=== PATIENT | female | born 1970 | race Caucasian/White ===

== ENCOUNTER 2016-08-21 17:03 | Emergency (ER) | payer OTHER, MEDICAID ==
--- NOTE | 2016-08-21 17:54 | EDPHY ---
H & P Time Seen by Provider: 08/21/16 17:17 HPI/ROS: CHIEF COMPLAINT: right arm swelling HISTORY OF PRESENT ILLNESS: Patient is a 46-year-old female with a history of lupus and back pain who presents to the emergency department with mild swelling at the base of her right brachium. Patient was admitted to the hospital and discharged on 08/11/2016 for lumbar strain. Patient does have a remote history of transverse myelitis but has had no repeat diagnoses. Patient's back is feeling better. She presents today because she had an IV placed in her right antecubital fossa. This was removed later the same day. She went home and gradually developed pain and swelling at the site of the IV. There is no redness. No warmth. No streaking up the arm. No fevers or chills. No numbness or tingling in her hand.Patient states she is on hormone replacement therapy. REVIEW OF SYSTEMS: My complete review of systems is negative except as mentioned in the HPI. Past Medical/Surgical History: Includes transverse myelitis, neurogenic bladder, lumbar strain, lupus, fibroids , pneumothorax, kidney stones, headaches Social history: The patient denies smoking. Smoking Status: Never smoked Physical Exam: General Appearance: Alert and no distress. Head: Pupils equal. Normal. Respiratory: No respiratory distress. Clear to auscultation bilaterally Cardiac: regular rate and rhythm. Extremities: patient has mild swelling the medial aspect of her antecubital fossa. There is no firm palpable mass but it is slightly larger than the left. There is no redness or warmth. No streaking up the arm. No lymphadenopathy. Neurovascularly intact distally.. Skin: No rashes or lesions. Neuro: Alert. Normal mood and affect. Constitutional: Initial Vital Signs Temperature (C) 36.8 C 08/21/16 17:07 Heart Rate 111 H 08/21/16 17:07 Respiratory Rate 16 08/21/16 17:07 Blood Pressure 155/96 H 08/21/16 17:07 O2 Sat (%) 98 08/21/16 17:07 O2 Delivery Mode Room Air Allergies/Adverse Reactions: naproxen [From Naprosyn] Allergy (Severe, Verified 09/10/15 23:43) Dyspnea phenazopyridine HCl [From Pyridium] Allergy (Severe, Verified 09/10/15 23:43) Sulfa (Sulfonamide Antibiotics) Allergy (Verified 09/10/15 23:43) Home Medications: Medication Instructions Recorded Bisacodyl [Dulcolax] 10 - 60 mg RC HS PRN 08/10/16 Cholecalciferol Vit D3 [Vitamin D3 1,000 units PO DAILY 08/10/16 (*)] Diazepam [Valium 10 MG (*)] 10 mg PO Q8H PRN 08/10/16 Diclofenac Sodium 25 - 50 mg PO Q8H PRN 08/10/16 Docusate Sodium [Colace 100 MG (*)] 100 mg PO BIDMEAL 08/10/16 Famciclovir [Famvir] 250 - 500 mg PO HS PRN 08/10/16 Famciclovir [Famvir] 500 mg PO DAILY 08/10/16 Gabapentin [Neurontin 300 MG (*)] 300 - 900 mg PO HS 08/10/16 Herbals/Supplements -Info Only 1 ea PO DAILY 08/10/16 Lactulose [Cephulac 20 gm/30 ml 20 gm PO DAILY 08/10/16 oral soln (*)] Multivitamins [Multivitamin (*)] 1 each PO DAILY 08/10/16 Norethindrone-E.estradiol-Iron 1 each PO HS 08/10/16 [Microgestin Fe 1-20 Tablet] Sennosides [Senokot] 8.6 mg PO DAILY PRN 08/10/16 Sennosides [Senokot] 25.8 mg PO DAILY 08/10/16 Tolterodine Tartrate [Detrol LA] 4 mg PO HS 08/10/16 azaTHIOprine [Imuran 50 mg (*)] 25 mg PO DAILY 08/10/16 Lidocaine 5% [Lidoderm 5% Patch 1 ea TD DAILY #15 patch 08/13/16 (*)] oxyCODONE IR [Oxycodone Ir (*)] 5 - 10 mg PO Q4 PRN #20 tab 08/13/16 Medical Decision Making ED Course/Re-evaluation: In the emergency department I discussed possible etiologies with the patient. I answered all her questions. An ultrasound of right upper extremity was ordered. 18 50: Please refer the dictated report by Dr. Sanchez. Patient has a basilic vein thrombosis. This is a superficial vein per Dr. Sanchez. Patient was given aspirin 324 mg. Hospital service was paged. I discussed the case with Dr. Gonzalez. He felt the patient was safe for discharge. He recommended close follow-up. Warm compresses. I discussed this with the patient. I answered all her questions. She is given warnings prior to leaving. Differential Diagnosis: My differential includes but is not limited to phlebitis, extravasation, DVT, arterial occlusion, contusion - Data Points Medications Given: Discontinued Medications Aspirin (Aspirin) 324 mg PO EDNOW ONE Stop: 08/21/16 18:56 Last Admin: 08/21/16 19:12 Dose: 324 mg Departure - Departure Disposition: Home, Routine, Self-Care Clinical Impression: Superficial venous thrombosis of upper extremity Qualifiers: Laterality: right Qualifier Code: (I82.611) Acute embolism and thrombosis of superficial veins of right upper extremity Condition: Good Instructions: Varicose Veins (ED) Additional Instructions: You need close recheck. You have a superficial venous thrombosis. (basilic vein ) he close follow-up with her doctor. Use warm compresses. Take an aspirin daily. Referrals: Isela Kelly ADMINISTRATIVE UNDERWRITER [Primary Care Provider] - 1-2 days without fail
[2016-08-21] MEDS ORDERED: ASPIRIN 81 MG CHEWABLE TAB PO ONE (18:55)
--- NOTE | 2016-08-21 19:00 | US ---
Ultrasound right upper extremity - August 21, 2016 at 1813 hours Clinical Indication: Right upper extremity pain and swelling. Recent IV start. Comparisons: None. Technique: Grayscale, color and Duplex imaging of the right upper extremity. Findings: The internal jugular vein, innominate vein, subclavian vein, axillary vein, brachial vein and cephalic veins are patent with normal waveforms. There is clot in the basilic vein from the mid t o distal humerus. It is patent above and below that. The left subclavian vein was evaluate for comparison and is normal. Impression: Right basilic clot from the mid to distal humerus. Results relayed by Dr. Dylan Sanchez to Dr. Mariam Garcia on August 21, 2016, at 1852 hours.
[2016-08-21] MEDS ORDERED: ASPIRIN 325 MG TAB ONE (19:37)
[2016-08-21 19:53] VITALS: BP 121/76; PULSE 94; RESP 15; TEMP 98.8; O2SAT 99
== END 2016-08-21 19:52 | disposition home or self-care (01) ==
DX: I82.611 Acute embolism and thrombosis of superficial veins of right upper extremity (principal)

== ENCOUNTER 2016-09-03 15:50 | Emergency (ER) | payer OTHER, MEDICAID ==
--- NOTE | 2016-09-03 15:46 | US ---
Ultrasound Venous Duplex/Doppler left Leg History: Pain and swelling. Findings: Ultrasound venous duplex and Doppler imaging of the common femoral vein, femoral vein, pop liteal vein, calf veins, greater saphenous vein origin, and contralateral common femoral vein demonst rates positive nonocclusive partial thrombus in the left popliteal vein. No extension to the left fem oral or common femoral vein. Impression: Positive deep venous thrombosis left leg. Findings and recommendations discussed with Dr. Witt at 1540 hour, today.
[2016-09-03 15:58] VITALS: O2SAT 95
--- NOTE | 2016-09-03 16:17 | EDPHY ---
H & P Stated Complaint: dvt on us l leg Time Seen by Provider: 09/03/16 16:12 HPI/ROS: CHIEF COMPLAINT: left popliteal vein DVT HISTORY OF PRESENT ILLNESS: 46-year-old female presents to the emergency department after being sent by her doctor for a positive DVT in her left lower extremity. Patient developed left calf pain 3 days ago that has progressed, ultrasound shows a DVT in her left popliteal vein nonocclusive. Patient 2 weeks ago was treated for a superficial thrombophlebitis from an IV start site over [place], she was taking 325 mg of aspirin twice a day until 4 days ago when she stopped this. Patient denies chest pain, no shortness of breath, no dizziness. Patient has a history of lupus, transverse myelitis, and she is on low dose control pills for fibroids causing vaginal bleeding. She does not smoke cigarettes. REVIEW OF SYSTEMS: A comprehensive 10 point review of systems is otherwise negative aside from elements mentioned in the history of present illness. Source: Patient Exam Limitations: No limitations - Personal History LMP (Females 10-55): Extended Cycle BCP/Inj Current Tetanus/Diphtheria Vaccine: No Tetanus Vaccine Date: pt refuses all vaccines - Medical/Surgical History Hx Asthma: No Hx Chronic Respiratory Disease: No Hx Diabetes: No Hx Cardiac Disease: No Hx Renal Disease: No Hx Cirrhosis: No Hx Alcoholism: No Hx HIV/AIDS: No Hx Splenectomy or Spleen Trauma: No Other PMH: Pmh: lupus, spinal cord injury, multiple fx in lower ext, fibroids, collapsed lung 2004, kidney stones, grinding of the teeth, colposcopy, whisdom teeth removal, neurogenic bladder, tension headaches - Social History Smoking Status: Never smoked Drug Use: Heroin - Physical Exam Exam: Physical Exam Gen: Alert and Oriented, NAD HEENT: PERRL, moist mucous membranes NECK: no meningismus CV: regular rate and regular rhythm PULM: CTAB, no wheezes ABDOMEN: soft, non tender to palpation, BS present BACK: No CVA tenderness NEURO: Neurologically grossly intact EXTREMITIES: normal appearing, left posterior calf with tenderness to palpation , no cords, no swelling, no erythema or warmth SKIN: no rash or break in skin on exposed skin PSYCH: answers questions appropriately. Constitutional: Initial Vital Signs Temperature (C) 36.7 C 09/03/16 15:55 Heart Rate 110 H 09/03/16 15:55 Respiratory Rate 20 09/03/16 15:55 Blood Pressure 149/93 H 09/03/16 15:55 O2 Sat (%) 95 09/03/16 15:55 O2 Delivery Mode Room Air Allergies/Adverse Reactions: naproxen [From Naprosyn] Allergy (Severe, Verified 09/03/16 15:53) Dyspnea phenazopyridine HCl [From Pyridium] Allergy (Severe, Verified 09/03/16 15:53) Sulfa (Sulfonamide Antibiotics) Allergy (Verified 09/03/16 15:53) Home Medications: Medication Instructions Recorded Bisacodyl [Dulcolax] 10 - 60 mg RC HS PRN 08/10/16 Cholecalciferol Vit D3 [Vitamin D3 1,000 units PO DAILY 08/10/16 (*)] Diazepam [Valium 10 MG (*)] 10 mg PO Q8H PRN 08/10/16 Diclofenac Sodium 25 - 50 mg PO Q8H PRN 08/10/16 Docusate Sodium [Colace 100 MG (*)] 100 mg PO BIDMEAL 08/10/16 Famciclovir [Famvir] 250 - 500 mg PO HS PRN 08/10/16 Famciclovir [Famvir] 500 mg PO DAILY 08/10/16 Gabapentin [Neurontin 300 MG (*)] 300 - 900 mg PO HS 08/10/16 Herbals/Supplements -Info Only 1 ea PO DAILY 08/10/16 Lactulose [Cephulac 20 gm/30 ml 20 gm PO DAILY 08/10/16 oral soln (*)] Multivitamins [Multivitamin (*)] 1 each PO DAILY 08/10/16 Norethindrone-E.estradiol-Iron 1 each PO HS 08/10/16 [Microgestin Fe 1-20 Tablet] Sennosides [Senokot] 8.6 mg PO DAILY PRN 08/10/16 Sennosides [Senokot] 25.8 mg PO DAILY 08/10/16 Tolterodine Tartrate [Detrol LA] 4 mg PO HS 08/10/16 azaTHIOprine [Imuran 50 mg (*)] 25 mg PO DAILY 08/10/16 Lidocaine 5% [Lidoderm 5% Patch 1 ea TD DAILY #15 patch 08/13/16 (*)] Rivaroxaban [Xarelto 15mg (*)] 15 mg PO BID 21 Days 09/03/16 Medical Decision Making - Diagnostics Imaging: Impression: Findings: Ultrasound venous duplex and Doppler imaging of the common femoral vein, femoral vein, popliteal vein, calf veins, greater saphenous vein origin, and contralateral common femoral vein demonstrates positive nonocclusive partial thrombus in the left popliteal vein. No extension to the left femoral or common femoral vein. Positive deep venous thrombosis left leg. Findings and recommendations discussed with Dr. Witt at 1540 hour, today. Dictated By: Tani Harrell ED Course/Re-evaluation: 46-year-old female presents from imaging with a positive left lower leg DVT in her popliteal vein. Patient has no chest pain or shortness of breath. Patient has a history of lupus, has had pain in this left lower leg increasing over the last 4 days. She was seen and treated for right upper extremity thrombophlebitis from an IV start. She was taking aspirin daily which she stopped 4 days ago. Patient denies chest pain, shortness of breath. I-STAT was drawn, she has normal renal functions. Patient was started on Xarelto. She was given a prescription for the 21 day course of 15 mg twice daily. She has an appointment with her primary care doctor in 2 days. I had a long discussion with the patient about the risks of being on an anticoagulant and the danger of a head strike. Patient is comfortable with this plan. She is given strict return precautions for any chest pain or shortness of breath. Differential Diagnosis: Diagnosis considered but not limited to DVT, muscle strain, septic joint, cellulitis - Data Points Laboratory Results: 09/03/16 17:02 POC Hgb 13.6 gm/dL (12.3-15.9) POC Hct 40 % (35.5-47.5) POC Sodium 142 mEq/L (134-144) POC Potassium 3.3 mEq/L (3.3-5.0) POC Chloride 108 mEq/L (96-108) POC BUN 9 mg/dL (7-23) POC Creatinine 0.7 mg/dL (0.6-1.2) POC Glucose 81 mg/dL (70-100) Medications Given: Discontinued Medications Rivaroxaban (Xarelto) 15 mg PO EDNOW ONE Stop: 09/03/16 17:37 Last Admin: 09/03/16 18:18 Dose: 15 mg Point of Care Test Results: 09/03/16 17:02 POC Sodium 142 POC Potassium 3.3 POC Chloride 108 POC BUN 9 POC Creatinine 0.7 POC Glucose 81 Departure - Departure Disposition: Home, Routine, Self-Care Clinical Impression: DVT (deep venous thrombosis) Condition: Good Instructions: Deep Venous Thrombosis (ED) Additional Instructions: Wear your compression socks 24 hours a day. Take your medication as prescribed , 15 mg of Xarelto twice daily for 21 days then you will need a prescription for 20 mg tablets. Return to the emergency department for any chest pain, shortness of breath, any other questions or concerns. Follow up with your primary care doctor as scheduled in 2 days. Referrals: Isela Kelly NEEDLE POLISHER [Primary Care Provider] - As per Instructions Prescriptions: Rivaroxaban [Xarelto 15mg (*)] 15 mg PO BID 21 Days
[2016-09-03] MEDS ORDERED: RIVAROXABAN 15 MG TAB PO ONE (17:36)
[2016-09-03 18:26] VITALS: BP 145/82; PULSE 69; RESP 16; TEMP 98.8
== END 2016-09-03 18:45 | disposition home or self-care (01) ==
LOC: EDSTATUS 15:50
DX: I82.432 Acute embolism and thrombosis of left popliteal vein (principal)
CPT/HCPCS: 82947-QW

== ENCOUNTER → 2016-09-06 | Outpatient (CLI) | payer OTHER, MEDICAID ==
--- NOTE | 2016-09-06 16:35 | US ---
Right Upper Extremity Venous Doppler INDICATION: Right upper extremity pain and swelling. Previously identified with superficial thrombop hlebitis, also DVT in the leg. On Xarelto for 3 days. Technique: Right upper extremity ultrasound is performed. COMPARISON: Sep 03, 2016, Aug 21, 2016. FINDINGS: The basilic vein is clotted from the elbow to the upper arm before it joins with the brachi al vein to form the axillary vein. The clot appears to be fresh. The vein is fully distended. The clot extends superiorly from the brachial vein-axillary vein junction, distally into the forearm. The distal portion in the forearm seems to be more compared to what was visualized before, however, I do not have a direct comparison between the two as far as the exact extent of where the clot goes. The rest of the veins in the right upper extremity are normal. Specifically, the innominate, subclavi an, jugular, axillary, and brachial veins are compressible and show normal color flow. No fluid colle ction. IMPRESSION: Superficial thrombophlebitis of the right basilic vein from forearm to upper humerus. If anything, the forearm portion of the clot may be extended. No DVT. Findings are discussed with Dr. Joseph Gupta.
== END ==
LOC: FIMAGING 14:59
PROVIDERS: ATTEND Internal Medicine Rheumatology
DX: I80.8 Phlebitis and thrombophlebitis of other sites (principal)

== ENCOUNTER 2016-09-09 05:48 | Inpatient (IN) | payer OTHER, MEDICAID ==
--- NOTE | 2016-09-09 06:08 | EDPHY ---
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 At that time she had no chest pain or shortness of breath. This patient presents to emergency room at 6 o'clock in the morning with left- sided inspiratory sharp pleuritic pain. Patient tells me that around 4 o'clock yesterday she developed this sudden onset sharp pain it is worse when she breathes in as when she breathes out. She tells me that she has not felt short of breath she has not had hemoptysis. She states she is concerned that possibly the clot went from her leg to her lung. She denies fever. Past Medical History: includes DVT recently diagnosed on September 03, lupus, neurogenic bladder, spinal cord injury, fibroids, kidney stones, on Xarelto, costochondritis, self caths Social History: denies any use of drugs alcohol tobacco products Family History: noncontributory ROS REVIEW OF SYSTEMS: A comprehensive 10 point review of systems is otherwise negative aside from elements mentioned in the history of present illness. Exam Constitutional triage nursing summary reviewed, vital signs reviewed, awake/ alert. Eyes normal conjunctivae and sclera, EOMI, PERRLA. HENT normal inspection, atraumatic, moist mucus membranes, no epistaxis, neck supple/ no meningismus, no raccoon eyes. Respiratory clear to auscultation bilaterally, normal breath sounds, no respiratory distress, no wheezing. Cardiovascular rate normal, regular rhythm, no murmur, no edema, distal pulses normal. Gastrointestinal soft, non-tender, no rebound, no guarding, normal bowel sounds, no distension, no pulsatile mass. Genitourinary no CVA tenderness. Musculoskeletal no midline vertebral tenderness, full range of motion, no calf swelling, no tenderness of extremities, no meningismus, good pulses, neurovascularly intact. Skin pink, warm, & dry, no rash, skin atraumatic. Neurologic awake, alert and oriented x 3, AAOx3, moves all 4 extremities equally, motor intact, sensory intact, CN II-XII intact, normal cerebellar, normal vision, normal speech. Psychiatric normal mood/affect. Heme/Lymph/Immune no lymphadenopathy. Differential diagnosis includes but is not limited to: Pulmonary embolism, pleurisy, lung infarct, ACS, atypical chest pain, pneumothorax, pneumonia, , aortic dissection, congestive heart failure, tumor, musculoskeletal pain, esophageal pain, GERD, peptic ulcer disease, pancreatitis Medical Decision Making: This patient will have an IV established, he will be hydrated with normal saline she will need a CT angiogram of her chest to rule pulmonary embolism. Patient had a EKG, blood work including abdominal labs given the left lateral lower chest wall pain pleurisy doubt colitis, doubt pancreatitis. Will check a BNP and troponin case PE is causing heart strain. Re-evaluation: 0717: Patient signed over to Dr. Andre for results of the CT angiogram to make sure she does not have a pulmonary embolism. EKG interpretation by me on record in [employer] system. Impression Time of EKG 6:30 a.m., this is sinus rhythm rate of 94, there is no acute ischemic changes specifically no ST elevation, ST depression, T-wave abnormality. Intervals are appropriate. CT scan of the Angiogram chest. The results of the study are positive for left lower lobe pulmonary embolism The study was read by Dr. Saldana. I viewed the images myself on the PACS system. 0728: Spoke with Dr. santo the hospital service he agrees to admit this patient for new left lower lobe pulmonary embolism in the setting of a left calf DVT that was diagnosed earlier in August. He feels that this patient may be failing Xarelto. Recommends Lovenox 1 milligram/kilogram. I have updated the patient she agrees for admission. Source: Patient - Personal History LMP (Females 10-55): Extended Cycle BCP/Inj Tetanus Vaccine Date: pt refuses all vaccines - Medical/Surgical History Hx Asthma: No Hx Chronic Respiratory Disease: No Hx Diabetes: No Hx Cardiac Disease: No Hx Renal Disease: No Hx Cirrhosis: No Hx Alcoholism: No Hx HIV/AIDS: No Hx Splenectomy or Spleen Trauma: No Other PMH: Pmh: lupus, spinal cord injury, multiple fx in lower ext, fibroids, collapsed lung 2004, kidney stones, grinding of the teeth, colposcopy, whisdom teeth removal, neurogenic bladder, tension headaches, DVT - Social History Smoking Status: Never smoked Constitutional: Initial Vital Signs Temperature (C) 37.3 C 09/09/16 05:54 Heart Rate 106 H 09/09/16 05:54 Respiratory Rate 20 09/09/16 05:54 Blood Pressure 164/105 H 09/09/16 05:54 O2 Sat (%) 100 09/09/16 05:54 O2 Delivery Mode Room Air Allergies/Adverse Reactions: naproxen [From Naprosyn] Allergy (Severe, Verified 09/09/16 05:52) Dyspnea phenazopyridine HCl [From Pyridium] Allergy (Severe, Verified 09/09/16 05:52) Sulfa (Sulfonamide Antibiotics) Allergy (Verified 09/09/16 05:52) Home Medications: Medication Instructions Recorded Bisacodyl [Dulcolax] 10 - 60 mg RC HS PRN 08/10/16 Cholecalciferol Vit D3 [Vitamin D3 1,000 units PO DAILY 08/10/16 (*)] Diazepam [Valium 10 MG (*)] 10 mg PO Q8H PRN 08/10/16 Diclofenac Sodium 25 - 50 mg PO Q8H PRN 08/10/16 Docusate Sodium [Colace 100 MG (*)] 100 mg PO BIDMEAL 08/10/16 Famciclovir [Famvir] 250 - 500 mg PO HS PRN 08/10/16 Famciclovir [Famvir] 500 mg PO DAILY 08/10/16 Gabapentin [Neurontin 300 MG (*)] 300 - 900 mg PO HS 08/10/16 Herbals/Supplements -Info Only 1 ea PO DAILY 08/10/16 Lactulose [Cephulac 20 gm/30 ml 20 gm PO DAILY 08/10/16 oral soln (*)] Multivitamins [Multivitamin (*)] 1 each PO DAILY 08/10/16 Norethindrone-E.estradiol-Iron 1 each PO HS 08/10/16 [Microgestin Fe 1-20 Tablet] Sennosides [Senokot] 8.6 mg PO DAILY PRN 08/10/16 Sennosides [Senokot] 25.8 mg PO DAILY 08/10/16 Tolterodine Tartrate [Detrol LA] 4 mg PO HS 08/10/16 azaTHIOprine [Imuran 50 mg (*)] 25 mg PO DAILY 08/10/16 Lidocaine 5% [Lidoderm 5% Patch 1 ea TD DAILY #15 patch 08/13/16 (*)] Rivaroxaban [Xarelto 15mg (*)] 15 mg PO BID 21 Days 09/03/16 Medical Decision Making - Data Points Laboratory Results: Laboratory Results 09/09/16 06:15 09/09/16 06:15 09/09/16 06:15 WBC 4.31 10^3/uL (3.80-9.50) RBC 4.54 10^6/uL (4.18-5.33) Hgb 14.2 g/dL (12.6-16.3) Hct 42.0 % (38.0-47.0) MCV 92.5 fL (81.5-99.8) MCH 31.3 pg (27.9-34.1) MCHC 33.8 g/dL (32.4-36.7) RDW 12.5 % (11.5-15.2) Plt Count 378 10^3/uL (150-400) MPV 8.2 L fL (8.7-11.7) Neut % (Auto) 77.4 H % (39.3-74.2) Lymph % (Auto) 11.4 L % (15.0-45.0) [place] % (Auto) 9.3 % (4.5-13.0) Eos % (Auto) 0.9 % (0.6-7.6) Baso % (Auto) 0.5 % (0.3-1.7) Nucleat RBC Rel Count 0.0 % (0.0-0.2) Absolute Neuts (auto) 3.34 10^3/uL (1.70-6.50) Absolute Lymphs (auto) 0.49 L 10^3/uL (1.00-3.00) Absolute Monos (auto) 0.40 10^3/uL (0.30-0.80) Absolute Eos (auto) 0.04 10^3/uL (0.03-0.40) Absolute Basos (auto) 0.02 10^3/uL (0.02-0.10) Absolute Nucleated RBC 0.00 10^3/uL (0-0.01) Immature Gran % 0.5 % (0.0-1.1) Immature Gran # 0.02 10^3/uL (0.00-0.10) PT 14.5 SEC (12.0-15.0) INR 1.14 (0.83-1.16) APTT 29.2 SEC (23.0-38.0) Sodium 143 mEq/L (134-144) Potassium 3.3 L mEq/L (3.5-5.2) Chloride 103 mEq/L (97-110) Carbon Dioxide 28 mEq/l (22-31) Anion Gap 12 mEq/L (8-16) BUN 8 mg/dL (7-23) Creatinine 0.7 mg/dL (0.6-1.0) Estimated GFR > 60 Glucose 85 mg/dL (70-100) Calcium 8.8 mg/dL (8.5-10.4) Magnesium 1.9 mg/dL (1.6-2.3) Total Bilirubin 0.8 mg/dL (0.1-1.4) Conjugated Bilirubin 0.7 H mg/dL (0.0-0.5) Unconjugated Bilirubin 0.1 mg/dL (0.0-1.1) AST 40 IU/L (14-46) ALT 46 IU/L (9-52) Alkaline Phosphatase 71 IU/L (38-126) Creatine Kinase 38 IU/L (0-156) CK-MB (CK-2) Fraction < 0.22 ng/mL (0-3.19) Troponin I < 0.012 ng/mL (0-0.034) NT-Pro-B Natriuret Pep 160 H pg/mL (0-125) Total Protein 7.9 g/dL (6.3-8.2) Albumin 3.9 g/dL (3.5-5.0) Lipase 114.0 IU/L (23-300) Medications Given: Discontinued Medications Sodium Chloride (Ns) 1,000 mls @ 0 mls/hr IV ONCE ONE PRN Reason: As Directed Stop: 09/09/16 06:20 Last Admin: 09/09/16 06:30 Dose: 1,000 mls Departure - Departure Disposition: [facility] Clinical Impression: Pleurisy Pulmonary embolus Qualifiers: Pulmonary embolism type: other Chronicity: acute Acute cor pulmonale presence: without acute cor pulmonale Qualifier Code: (I26.99) Other pulmonary embolism without acute cor pulmonale Condition: Good Referrals: Isela Kelly, ENROLLMENT PROCESSOR [Primary Care Provider] - As per Instructions
[2016-09-09] MEDS ORDERED: NS 1,000 ML IV ONE (06:19)
[2016-09-09 06:24] LABS: % IMMATURE GRANULYOCYTES 0.5 % (0.0-1.1); ABSOLUTE IMMATURE GRANULOCYTES 0.02 10^3/uL (0.00-0.10); ADD DIFF? NO; ADD MORPH? NO; ADD SCAN? NO; ATYPICAL LYMPHOCYTE FLAG 20 (0-99); FRAGMENT RBC FLAG 0 (0-99); HEMOGLOBIN 14.2 g/dL (12.6-16.3); LEFT SHIFT FLG 0 (0-99); LIPEMIA HEMOLYSIS FLAG 90 (0-99); MEAN CELL HEMOGLOBIN 31.3 pg (27.9-34.1); MEAN CELL HEMOGLOBIN CONCENTR. 33.8 g/dL (32.4-36.7); MEAN CELL VOLUME 92.5 fL (81.5-99.8); MEAN PLATELET VOLUME 8.2 fL (8.7-11.7); PLATELET CLUMPS FLAG 10 (0-99); PLATELET COUNT 378 10^3/uL (150-400); RED BLOOD CELL COUNT 4.54 10^6/uL (4.18-5.33); RED CELL DISTRIBUTION WIDTH 12.5 % (11.5-15.2)
[2016-09-09] MEDS ORDERED: IOPAMIDOL (ISOVUE 370) 100 ML BTL IV ONE (06:26)
[2016-09-09 06:33] LABS: APTT 29.2 SEC (23.0-38.0); INR 1.14 (0.83-1.16); PROTIME(PATIENT) 14.5 SEC (12.0-15.0)
--- NOTE | 2016-09-09 06:35 | CPEKG ---
Heart Rate: 94 RR Interval: 638 P-R Interval: 151 QRSD Interval: 76 QT Interval: 352 QTC Interval: 441 P [place]: 0 QRS [place]: 85 T Wave [place]: 38 EKG Severity - NORMAL ECG - EKG Impression: SINUS RHYTHM Electronically Signed By: Tasha Andre 09-Sep-2016 15:13:44
[2016-09-09 06:45] LABS: ALANINE AMINOTRANSFERASE 46 IU/L (9-52); ALBUMIN 3.9 g/dL (3.5-5.0); ALKALINE PHOSPHATASE 71 IU/L (38-126); ANION GAP 12 mEq/L (8-16); ASPARTATE AMINOTRANSFERASE 40 IU/L (14-46); BILIRUBIN,TOTAL 0.8 mg/dL (0.1-1.4); BILIRUBIN-CONJUGATED 0.7 mg/dL (0.0-0.5); BILIRUBIN-UNCONJUGATED 0.1 mg/dL (0.0-1.1); CALCIUM 8.8 mg/dL (8.5-10.4); CARBON DIOXIDE 28 mEq/l (22-31); CHLORIDE 103 mEq/L (97-110); CREATININE 0.7 mg/dL (0.6-1.0); GLOMERULAR FILTRATION RATE > 60; GLUCOSE 85 mg/dL (70-100); MAGNESIUM 1.9 mg/dL (1.6-2.3); POTASSIUM 3.3 mEq/L (3.5-5.2); SODIUM 143 mEq/L (134-144); TOTAL PROTEIN 7.9 g/dL (6.3-8.2)
[2016-09-09 06:56] LABS: TROPONIN I < 0.012 ng/mL (0-0.034)
[2016-09-09 07:10] LABS: CREATINE KINASE-MB FRACTION < 0.22 ng/mL (0-3.19)
[2016-09-09] MEDS ORDERED: ENOXAPARIN 60 MG/0.6 ML SYR SC ONE (07:28)
[2016-09-09] MEDS ORDERED: ONDANSETRON 4 MG/2 ML VIAL IVP PRN (07:59)
[2016-09-09] MEDS ORDERED: ONDANSETRON DISINTEGRATING 4 MG TAB PO PRN (07:59)
[2016-09-09] MEDS ORDERED: ENOXAPARIN 80 MG/0.8 ML SYR SC ONE (08:00)
[2016-09-09] MEDS ORDERED: POTASSIUM CL 20 MEQ TAB PO ONE (08:07)
[2016-09-09] MEDS ORDERED: WARFARIN SODIUM 5 MG TAB PO ONE (08:10)
--- NOTE | 2016-09-09 08:37 | CT ---
CT Pulmonary Angiogram Clinical Indications: Chest pain in a 46-year-old female with a history of lower extremity deep vein thrombosis; evaluate for pulmonary embolic disease. Technique: Thinly collimated multidetector helical CT imaging was performed through the chest while 75 mL of Isovue-370 were injected intravenously without complication. The images were obtained at 4 mm thickness and reconstructed at 1.5 mm thickness. Sagittal and coronal reconstructions were perform ed. The examination is reviewed on the workstation by the interpreting physician at multiple window/l evel settings. Dose reduction techniques were utilized. Findings: Chest: There is minimal patchy alveolar opacity involving the left lower lobe. Heart size is normal. No pericardial or pleural effusions are seen. Hilar and mediastinal contours are normal. There are no masses or noncalcified pulmonary nodules. The upper abdomen is negative for acute abnormality on this arterial phase study. CT Pulmonary Angiogram: The pulmonary arterial system is well opacified. Intraluminal filling defec t is seen involving the left pulmonary arterial system extending from the second order branches into more peripheral left lower lobe pulmonary arteries. No right-sided pulmonary emboli are seen. No vascular malformations are seen. The thoracic aorta has a normal contour without evidence of aneu rysm or dissection. Impression: 1. Left lower lobe pulmonary embolic disease. 2. Minimal left lower lung alveolar opacity probably secondary to the left lower lobe pulmonary embol i. The study was performed as an emergency on-call case and discussed by telephone with Dr. Blaine ramirez at 0 725 hours. The final interpretation is concordant with the original communication.
--- NOTE | 2016-09-09 08:43 | GHP ---
[f rep st] HISTORY AND PHYSICAL DATE OF ADMISSION: 09/09/2016 DATE OF EVALUATION: 09/09/2016 CHIEF COMPLAINT: Chest pain. HISTORY OF PRESENT ILLNESS: This is a 46-year-old female, who was started on Xarelto for a left popl iteal DVT on September 03. She had no symptoms of chest pain or shortness of breath at that time. She had about 2 days of what she initially described as costochondritis. Yesterday became pleuritic, th us she presented to the emergency department. She has no shortness of breath. She has had no syncop e. History is notable for lupus. She had an episode of transverse myelitis in the setting of lupus whic h left her initially paralyzed. She has an ongoing neurogenic bladder, needs significant bowel nickolas col. PAST MEDICAL/SURGICAL HISTORY: 1. Lupus transverse myelitis, as above. 2. Recent DVT. 3. Degenerative disk disease. 4. Ureteroscopy. 5. Colposcopy. 6. [facility] teeth removal. MEDICATIONS: Please see medication reconciliation. ALLERGIES: 1. Naproxen. 2. Phenazopyridine. 3. Sulfa. FAMILY HISTORY: Father of ALS. SOCIAL HISTORY: She never smoked. She does not drink. She does not use drugs. REVIEW OF SYSTEMS: 10-point review of systems was conducted and is negative except per HPI. PHYSICAL EXAM: VITAL SIGNS: Blood pressure is 164/105, heart rate is 106, respiration rate 20, satu rating 100% on room air. Temperature 37.3. GENERAL: The patient is a pleasant female, sitting comfo rtably, in no acute distress. HEENT: Shows her to be normocephalic, atraumatic. CARDIOVASCULAR: R egular rate and rhythm. No murmurs, rubs, or gallops. PULMONARY: Lungs clear to auscultation bilat erally. She is not in any respiratory distress. ABDOMEN: Soft, nontender, nondistended. SKIN: Sh ows no rash. : Exam shows her to have no Thorpe catheter in place. NEUROLOGIC: Shows her to be a lert and oriented x3. She is resting comfortably in her chair. PSYCHIATRIC: Exam shows a normal mo od and affect. LABS: CBC is unremarkable. INR is 1.1. Potassium is 3.3. DATA: 1. I discussed this with Dr. Herrera, will admit for pulmonary embolus. 2. I personally reviewed and interpreted her chest and thorax CT angiogram that did show a left lowe r lobe pulmonary embolus. 3. I personally reviewed and interpreted her EKG; this shows normal access, sinus rhythm, borderline tachycardic. There are no acute ischemic changes. IMPRESSION AND PLAN: This is a 46-year-old female with lupus who presents after failing Xarelto with a new pulmonary embolus. 1. Pulmonary embolus: Had been placed on Xarelto, is taking it appropriately. Initial DVT started post hospitalization, when she was more immobile. She has a history of a spinal cord injury. She gomez s lupus. I think immediate treatment should be Lovenox with transition to warfarin. I will check a hypercoagulable panel including anticardiolipin antibodies. We will also check a D-dimer. Will invo lve Hematology in her care. 2. Lupus: Appears that mostly this has been episode of transverse myelitis causing paralysis, for w hich she has mostly recovered. She has an ongoing neurogenic bladder and needs significant bowel pro tocol. 3. Mild hypokalemia. Will replete. /[id number]/MODL
[2016-09-09] MEDS ORDERED: ACETAMINOPHEN 325 MG TAB ONE (08:45)
[2016-09-09] MEDS ORDERED: ENOXAPARIN 80 MG/0.8 ML SYR SC SCH ×2 (09:00→21:00)
[2016-09-09] MEDS: ACETAMINOPHEN 325 MG TAB PO PRN (09:05)
[2016-09-09] MEDS: oxyCODONE IR 5 MG TAB PO PRN ×3 (09:58→20:22)
[2016-09-09] MEDS ORDERED: DIAZEPAM 10 MG TAB PO PRN (11:20)
[2016-09-09] MEDS ORDERED: FAMCICLOVIR 500 MG PO SCH ×2 (11:45→21:00)
[2016-09-09] MEDS ORDERED: KETOROLAC 30 MG/1 ML SDV IVP ONE (11:47)
[2016-09-09] MEDS ORDERED: azaTHIOprine 50 MG TAB PO SCH (12:00)
[2016-09-09] MEDS ORDERED: DIAZEPAM 5 MG TAB PO PRN (12:05)
[2016-09-09] MEDS ORDERED: FAMCICLOVIR 250 MG TAB PO SCH (12:30)
[2016-09-09] MEDS: LIDOCAINE 5% 1 EA PATCH TD SCH (12:50)
[2016-09-09] MEDS ORDERED: DIAZEPAM 10 MG PO PRN (13:29)
[2016-09-09] MEDS: DOCUSATE SODIUM 100 MG CAP PO SCH ×2 (13:37→14:45)
[2016-09-09] MEDS: FAMVIR 500 MG PO SCH ×2 (13:51→20:20)
[2016-09-09] MEDS: SENNOSIDES 1 TAB PO SCH ×2 (14:52→22:35)
--- NOTE | 2016-09-09 16:51 | HOSPPROG ---
Hospitalist Progress Note Assessment/Plan: Patient seen, plan of care discussed. Will await consultation from on Hematology Oncology Continue patient's home medications Reviewed concerns with patient's bowel therapy program Discussed with RN Subjective: Still having significant left-sided pain. Concerns about bowel therapy program. Objective: Vital Signs Temp Pulse Resp BP Pulse Ox 37.0 C 91 19 139/92 H 99 09/09/16 15:03 09/09/16 15:03 09/09/16 15:03 09/09/16 15:03 09/09/16 15:03 09/08/16 09/09/16 09/10/16 05:59 05:59 05:59 Intake Total 1000 Output Total 200 Balance 800 PT 14.5 SEC (12.0-15.0) 09/09/16 06:15 INR 1.14 (0.83-1.16) 09/09/16 06:15 - Physical Exam Constitutional: uncomfortable Eyes: PERRL, anicteric sclera Ears, Nose, Mouth, Throat: moist mucous membranes, hearing normal Cardiovascular: No JVD, No edema Gastrointestinal: No normoactive bowel sounds, No ascites Skin: warm, normal color Musculoskeletal: generalized weakness Neurologic: AAOx3 Psychiatric: thought process linear, anxious ICD10 Worksheet Patient Problems: Problems Problem Status Diagnosed Lumbar back pain with radiculopathy affecting left lower extremity Acute Pleurisy Acute Pulmonary embolus Acute
--- NOTE | 2016-09-09 17:26 | GCON ---
[f rep st] CONSULTATION HEMATOLOGY/ONCOLOGY CONSULTATION REASON FOR CONSULTATION: Pulmonary emboli with recent DVT on Xarelto. HISTORY OF PRESENT ILLNESS: The patient is a 46-year-old female admitted with PE diagnosed while on Xarelto. The patient reports that she was diagnosed with lupus approximately 25 years ago. At that time, her presenting symptoms were myalgias, arthralgias, fatigue and mouth sores. She was initially treated with Plaquenil. She was relatively stable until approximately 12 years ago, when she developed transverse myelitis that resulted in paraplegia. The patient has resumed function of her legs and is able to ambulate, but unfortunately continues to have neurogenic bladder and bowels. She has to self catheterize and has a very regular program that she does daily to move her bowels. She reports that she has just not been feeling well the last couple of months. She has had intermittent elevated blood pressure, which is somewhat unusual for her. She has been more fatigued and she just has a foreboding that something is not right. She presented to the ER on August 10 with acute low back and was felt to have muscle spasm. She was in the hospital for 3 days and when she was discharged, the back pain had resolved but she still was not feeling well from the standpoint of fatigue and a sense that something was not right. On August 21, she was diagnosed with a superficial phlebitis in her right arm at the site of an IV that she had during her July admission. She treated that with aspirin and warm compresses. She then presented to the emergency room on September 03 with a 4 day history of pain behind her left knee. She did not have any swelling. An ultrasound showed a nonocclusive partial thrombus in the left popliteal vein, but there was no extension to the left femoral or common femoral vein. She was on OCP's at the time and was switched to a progesterone only contraceptive She was started on Xarelto. She had another ultrasound on September 06 to evaluate the ongoing right arm pain with 2 new areas suggestive of superficial phlebitis. This showed superficial phlebitis of the right basilic vein from the forearm to the upper humerus. She had been on Xarelto for 3 days at that time. She reports that on September 05, she started having some mid chest pain that was pleuritic. She thought it was possibly costochondritis. The pain worsened to the point where this morning she presented to the emergency room where CT angiogram identified a pulmonary emboli in the left lower lobe. Despite the PE, the patient has not had any symptoms of dyspnea. She is admitted for further evaluation and treatment of the pulmonary embolus. The patient receives the bulk of her rheumatology care in [place] with a restorative art embalmer that has seen her for 12 years. He is treating her with Imuran. She is not certain whether or not she has ever been tested for lupus anticoagulants or any cardiolipin antibodies. She has never had low platelet counts. This is her 1st thromboembolic event. PAST MEDICAL HISTORY: Transverse myelitis, neurogenic bladder and bowel, DVT. PAST SURGICAL HISTORY: Colposcopy, wisdom teeth removal. FAMILY HISTORY: Her father of ALS. A maternal grandmother had a pulmonary emboli. There is no family history of any colon or breast cancer. SOCIAL HISTORY: She does not smoke. She does not drink alcohol. She lives alone and is currently not working. REVIEW OF SYSTEMS: Ten point review of systems is negative, other than stated in HPI. PHYSICAL EXAMINATION: GENERAL: She is sitting in bed, appearing relatively comfortable. VITAL SIGNS: Blood pressure 139/92, heart rate 91, O2 sat 99% on room air. She is afebrile. HEENT: Pupils are equal. Sclerae anicteric. Oropharynx clear. LUNGS: Clear to auscultation. HEART: Regular rate. ABDOMEN: Soft, nontender. EXTREMITIES: No edema. No pain behind the left knee. LABORATORY DATA: White blood cell count 4.3, hematocrit 42, platelets 378. PTT 29.2, INR 1.1. Fibrinogen 546. Comprehensive metabolic panel is unremarkable. IMPRESSION: This is a 46-year-old female with a past history of lupus complicated by transverse myelitis with a recent diagnosis of superficial phlebitis diagnosed in early August and then nonocclusive deep venous thrombosis of the left leg on September 03. Three days after starting xaralto for the DVT, she developed pleuritic mid sternal chest pain and was subsuquently diagnosed with pulmonary emboli to the left lower lobe. It is unclear to me whether or not this represents true Xarelto failure. I think it is possible that the patient may have had a pulmonary embolus at the time of the initial deep venous thrombosis diagnosis, but was not yet symptomatic from it. Nonetheless, I agree with treating with Lovenox transitioning to Coumadin. A hypercoagulable workup with anticardiolipin antibodies, lupus anticoagulant, beta-2 glycoprotein antibodies is pending. Of note, the patient has normal platelets and a normal PTT, both of which are often abnormal in the setting of lupus anticoagulant. There is a remote family history of thromboembolic disease with her grandmother, and I think it would be reasonable to do an additional hypercoagulable evaluation. The patient was on estrogen containing control pill at the time of the deep venous thrombosis and is now on a progesterone only agent. No other obvious provoking event is identified. The patient is concerned that she may be having a lupus flare and, evaluation for that is under way. PLAN: 1. Agree with Lovenox with transitioning to Coumadin for now. 2. We will do additional labs to complete a hereditary thrombophilic workup. 3. We will try to get records from her restorative art embalmer in terms of whether or not she has previously been identified to have a lupus anticoagulant. . 4. I think it would be reasonable to check an ultrasound of the left leg to see if there has been any obvious propagation of clot in her leg. I think this is unlikely, but would be helpful from a new baseline standpoint. 5. We will continue to follow along with you. /[id number]/MODL MTDD
[2016-09-09] MEDS ORDERED: GABAPENTIN 300 MG CAP PO ONE (17:30)
[2016-09-09] MEDS ORDERED: SENNOSIDES 1 TAB PO SCH (18:00)
[2016-09-09] MEDS: GABAPENTIN 300 MG CAP PO SCH (20:21)
[2016-09-09] MEDS: ENOXAPARIN 80 MG/0.8 ML SYR SC SCH (20:33)
[2016-09-09] MEDS ORDERED: TOLTERODINE TARTRATE 4 MG PO SCH (21:00)
[2016-09-09] MEDS ORDERED: TOLTERODINE TARTRATE 2 MG EXT REL CAP PO SCH (21:00)
[2016-09-09] MEDS: TOLTERODINE TARTRATE 4 MG PO SCH (22:35)
[2016-09-09] MEDS: PATCH REMOVAL 1 EA PATCH TD SCH (22:36)
[2016-09-10] MEDS: ACETAMINOPHEN 325 MG TAB PO PRN ×3 (03:10→22:26)
[2016-09-10] MEDS: DIAZEPAM 10 MG PO PRN ×3 (03:39→22:33)
[2016-09-10] MEDS ORDERED: CHLORHEXIDINE GLUCONATE 15 ML UDL ONE (05:25)
[2016-09-10 05:47] LABS: % IMMATURE GRANULYOCYTES 0.5 % (0.0-1.1); ABSOLUTE IMMATURE GRANULOCYTES 0.02 10^3/uL (0.00-0.10); ADD DIFF? NO; ADD MORPH? NO; ADD SCAN? NO; ATYPICAL LYMPHOCYTE FLAG 40 (0-99); FRAGMENT RBC FLAG 0 (0-99); HEMATOCRIT 37.2 % (38.0-47.0); HEMOGLOBIN 12.7 g/dL (12.6-16.3); LEFT SHIFT FLG 0 (0-99); LIPEMIA HEMOLYSIS FLAG 90 (0-99); MEAN CELL HEMOGLOBIN 31.8 pg (27.9-34.1); MEAN CELL HEMOGLOBIN CONCENTR. 34.1 g/dL (32.4-36.7); MEAN CELL VOLUME 93.2 fL (81.5-99.8); MEAN PLATELET VOLUME 8.2 fL (8.7-11.7); PLATELET CLUMPS FLAG 0 (0-99); PLATELET COUNT 328 10^3/uL (150-400); RED BLOOD CELL COUNT 3.99 10^6/uL (4.18-5.33); RED CELL DISTRIBUTION WIDTH 12.3 % (11.5-15.2)
[2016-09-10 06:07] LABS: INR 1.25 (0.83-1.16); PROTIME(PATIENT) 15.7 SEC (12.0-15.0)
[2016-09-10 06:17] LABS: ANION GAP 10 mEq/L (8-16); CALCIUM 8.5 mg/dL (8.5-10.4); CARBON DIOXIDE 23 mEq/l (22-31); CHLORIDE 106 mEq/L (97-110); CREATININE 0.6 mg/dL (0.6-1.0); GLOMERULAR FILTRATION RATE > 60; GLUCOSE 81 mg/dL (70-100); POTASSIUM 3.9 mEq/L (3.5-5.2); SODIUM 139 mEq/L (134-144)
[2016-09-10] MEDS ORDERED: NORETHINDRONE PO SCH (09:00)
[2016-09-10] MEDS ORDERED: SENNOSIDES 1 TAB PO SCH (09:00)
[2016-09-10] MEDS ORDERED: Herbals/Supplements -Info Only PO SCH (09:00)
[2016-09-10] MEDS ORDERED: azaTHIOprine 50 MG TAB PO SCH (09:00)
[2016-09-10] MEDS ORDERED: IMURAN PO SCH (09:00)
[2016-09-10] MEDS: ENOXAPARIN 80 MG/0.8 ML SYR SC SCH ×2 (09:49→22:26)
[2016-09-10] MEDS: DOCUSATE SODIUM 100 MG CAP PO SCH ×4 (09:49→20:44)
[2016-09-10] MEDS: CHOLECALCIFEROL VIT D3 1,000 UNITS TAB PO SCH (09:50)
[2016-09-10] MEDS: MULTIVITAMINS 1 EACH TAB PO SCH (09:51)
[2016-09-10] MEDS: IMURAN PO SCH (09:53)
[2016-09-10] MEDS: FAMVIR 500 MG PO SCH ×2 (09:55→22:27)
[2016-09-10] MEDS: LACTULOSE 20 GM/30 ML UDCUP PO SCH (11:12)
[2016-09-10] MEDS: LIDOCAINE 5% 1 EA PATCH TD SCH ×2 (11:12→12:01)
[2016-09-10] MEDS: SENNOSIDES 1 TAB PO SCH ×2 (11:13→20:43)
[2016-09-10] MEDS ORDERED: WARFARIN SODIUM 5 MG TAB PO ONE ×2 (11:24→12:00)
[2016-09-10] MEDS ORDERED: KETOROLAC 30 MG/1 ML SDV IVP ONE (11:24)
--- NOTE | 2016-09-10 11:51 | SOAPPROG ---
SOAP Progress Note Assessment/Plan: Assessment: 1) Pulmonary emboli diagnosed 3 days after starting xaralto-on therapeutic lovenox with coumadin 2) SLE with history of tranverse myelitis 3) Neurogenic bowel and bladder 4) Pleuritic pain-left shoulder/chest 5) Anxiety 6) HTN-?acute versus chronic Plan: Continue lovenox until INR therapeutic Follow up on hypercoag labs, especially ACL, LA and beta 2 glycoprotein antibodies Follow up ultrasound on left leg to rule out clot propagation while on xaralto. This is unlikely and not urgent. Will serve as new baseline. Her PCP (Nilam Barrera) office is about 20 miles from where she lives, will likely be more convenient for her to be followed in the anticoag clinic here. NSAID's ok in the short term with the coumadin. Narcotics problematic with her bowel issues. 09/10/16 11:55 Subjective: feeling overwhelmed with her bowel concerns, pleuritic chest pain Objective: Vital Signs Temp Pulse Resp BP Pulse Ox 36.7 C 83 16 133/91 H 97 09/10/16 08:00 09/10/16 09:20 09/10/16 08:00 09/10/16 08:00 09/10/16 09:20 Laboratory Results 09/10/16 05:17 09/10/16 05:17 09/09/16 09/10/16 09/11/16 05:59 05:59 05:59 Intake Total 1525 Output Total 900 Balance 625 PT 15.7 SEC (12.0-15.0) H 09/10/16 05:17 INR 1.25 (0.83-1.16) H 09/10/16 05:17 Physical Exam - Physical Exam General Appearance: anxiety Neck: supple Respiratory: lungs clear Abdomen: non-tender, soft Extremities: No pedal edema ICD10 Worksheet Patient Problems: Problems Problem Status Diagnosed Lumbar back pain with radiculopathy affecting left lower extremity Acute Pleurisy Acute Pulmonary embolus Acute
[2016-09-10] MEDS ORDERED: CHLORHEXIDINE GLUCONATE 15 ML UDL PO ONE (12:00)
[2016-09-10 13:10] LABS: PROTEIN S ACTIVITY 87 % (50 - 160)
[2016-09-10 14:46] LABS: PROTEIN C ACTIVITY 113 % (70 - 150)
--- NOTE | 2016-09-10 15:47 | HOSPPROG ---
Hospitalist Progress Note Assessment/Plan: 46-year-old female presents emergency room complaints of left-sided chest pain. Chart reviewed extensively. Discussed with the correctional case records supervisor. Reviewed patient' s care with the nursing staff. #Pulmonary emboli diagnosed 3 days after starting xaralto-on therapeutic lovenox with coumadin Appreciate Hematology consult Continue Lovenox and Coumadin Continue to follow pending laboratory evaluations Patient will attend the Coumadin Clinic is it is closer to her home # history of SLE with history of tranverse myelitis Stable at this time # Neurogenic bowel and bladder Continue aggressive bowel protocol Patient may require rehabilitation secondary to acute process # Pleuritic pain-left shoulder/chest Toradol today NSAIDs per Hematology # Anxiety Patient has contracted for safety with me however with staff has been presenting suicidal ideation Reviewed with the hospital social worker TLC evaluation ordered # HTN- Likely acute in the setting of severe anxiety Will continue to monitor # disposition Reviewed plan of care at length with patient Anxious about going home Recommended rehabilitation in the outpatient setting Consider PowerBack Bowel regimen today Case management to arrange disposition plan Will likely discharge 09/12/2016 Subjective: Up out of bed. Complains of neck and left shoulder pain. Tearful and anxious during my evaluation. Concerns regarding plan of care and outpatient follow-up. Concerns regarding bowel regimen. Objective: Vital Signs Temp Pulse Resp BP Pulse Ox 36.6 C 95 16 139/94 H 97 09/10/16 11:48 09/10/16 11:48 09/10/16 11:48 09/10/16 11:48 09/10/16 11:48 Laboratory Results 09/10/16 05:17 09/10/16 05:17 09/09/16 09/10/16 09/11/16 05:59 05:59 05:59 Intake Total 1525 Output Total 900 Balance 625 PT 15.7 SEC (12.0-15.0) H 09/10/16 05:17 INR 1.25 (0.83-1.16) H 09/10/16 05:17 - Physical Exam Constitutional: appears nourished, chronically ill appearing, uncomfortable Eyes: PERRL, anicteric sclera, EOMI Ears, Nose, Mouth, Throat: moist mucous membranes, hearing normal, ears appear normal Cardiovascular: tachycardia, No JVD, No edema Respiratory: no respiratory distress, no rales or rhonchi, reduced air movement Gastrointestinal: No tenderness, No ascites, No guarding Skin: warm, normal color, No induration Musculoskeletal: no joint effusions, muscular tenderness, generalized weakness Neurologic: AAOx3 Psychiatric: not encephalopathic, anxious, depressed, poor judgement, No suicidal ideation ICD10 Worksheet Patient Problems: Problems Problem Status Diagnosed Lumbar back pain with radiculopathy affecting left lower extremity Acute Pleurisy Acute Pulmonary embolus Acute
[2016-09-10] MEDS ORDERED: CHLORHEXIDINE GLUCONATE 15 ML UDL PO PRN (16:23)
[2016-09-10] MEDS: LACTULOSE 20 GM/30 ML UDCUP PO PRN (16:24)
[2016-09-10] MEDS: SENNOSIDES 1 TAB PO PRN (16:25)
[2016-09-10] MEDS ORDERED: LIDOCAINE 5% 1 EA PATCH TD ONE (16:30)
[2016-09-10 17:19] LABS: BETA 2 GLYCOPROTEIN IGA 11.5 U/mL (())
[2016-09-10 18:31] LABS: C3 COMPLEMENT COMPONENT 101 mg/dL (75 - 175); C4 COMPLEMENT COMPONENT 19 mg/dL (14 - 40)
[2016-09-10] MEDS: BISACODYL 10 MG SUPP PR PRN (19:49)
[2016-09-10] MEDS: GABAPENTIN 300 MG CAP PO SCH (22:26)
[2016-09-10] MEDS: TOLTERODINE TARTRATE 4 MG PO SCH (22:27)
[2016-09-10] MEDS: PATCH REMOVAL 1 EA PATCH TD SCH (22:57)
[2016-09-11] MEDS: ACETAMINOPHEN 325 MG TAB PO PRN ×2 (04:47→22:23)
[2016-09-11] MEDS ORDERED: KETOROLAC 30 MG/1 ML SDV IVP ONE (05:00)
[2016-09-11 07:56] LABS: DRVVT CONFIRM RATIO 1.1 ratio (0.0 - 1.1); THROMBIN TIME 24 sec (15 - 23)
[2016-09-11 08:16] LABS: REPTILASE TIME 19 sec (14 - 23)
[2016-09-11] MEDS: ENOXAPARIN 80 MG/0.8 ML SYR SC SCH ×2 (08:52→22:10)
[2016-09-11] MEDS: IMURAN PO SCH (10:17)
[2016-09-11] MEDS: FAMVIR 500 MG PO SCH ×2 (10:19→22:12)
[2016-09-11] MEDS: MULTIVITAMINS 1 EACH TAB PO SCH (10:20)
[2016-09-11] MEDS: DOCUSATE SODIUM 100 MG CAP PO SCH ×3 (10:21→22:11)
[2016-09-11] MEDS: CHOLECALCIFEROL VIT D3 1,000 UNITS TAB PO SCH (10:21)
[2016-09-11] MEDS ORDERED: WARFARIN SODIUM 5 MG TAB PO ONE ×2 (10:43→12:00)
[2016-09-11] MEDS: IBUPROFEN 600 MG TAB PO SCH ×2 (11:12→22:10)
[2016-09-11] MEDS: SENNOSIDES 1 TAB PO SCH ×2 (11:38→22:10)
[2016-09-11] MEDS: LACTULOSE 20 GM/30 ML UDCUP PO SCH (11:38)
[2016-09-11] MEDS: LIDOCAINE 5% 1 EA PATCH TD SCH (11:38)
[2016-09-11] MEDS: DIAZEPAM 10 MG PO PRN (12:29)
--- NOTE | 2016-09-11 12:33 | SOAPPROG ---
SOAP Progress Note Assessment/Plan: Assessment: Psych eval-full note to follow. Pt is a 46 y/o S C female who has been on antidepressants in the past but who has no hx of psych hosp or suicide attempts who has been making vague suicidal statements during her recent medical stay. She has a long hx of Lupus and was dx with PE 3 days ago; she also has neurogenic bowel and bladder, plueuritic pain and pain in L shoulder and chest, transverse myelitis, and HTN. Pt states she has been through a lot and currently has no quality of life and has few supports in the community. Pt is from the [place] and moved here 18 years ago. She admits to not wanting to live with pain and not having quality of life, but does want to go to rehab and get better. Denies current SI or plan/intent. Plan:Pt is psych stable for D/C-not acutely suicidal-she has been accepted to rehab does not want or need antidepressants con't Valium prn for anxiety related to pain and other medical problems 09/12/16 11:59 Subjective: "I'm just frustrated." Objective: Vital Signs Temp Pulse Resp BP Pulse Ox 36.6 C 91 18 141/88 H 96 09/11/16 08:00 09/11/16 08:00 09/11/16 08:00 09/11/16 08:00 09/11/16 08:00 Laboratory Results 09/10/16 05:17 09/10/16 05:17 09/10/16 09/11/16 09/12/16 05:59 05:59 05:59 Intake Total 1525 Output Total 900 Balance 625 PT 15.7 SEC (12.0-15.0) H 09/10/16 05:17 INR 1.25 (0.83-1.16) H 09/10/16 05:17 Pt is A+O x4 mood-anxious affect-appr no veg sx depression thoughts-logical speech-wnl no S/H i no A/V H no sx psychosis/jaleesa conc/memory-intact I/J-good - Time Spent With Patient Time Spent With Patient: 45' - Pending Discharge Pending Discharge Within 24 Hours: Yes Pending Discharge Within 48 Hours: Yes Pending Discharge Date: 09/13/16 Pending Discharge Time: 11:00 ICD10 Worksheet Patient Problems: Problems Problem Status Diagnosed Lumbar back pain with radiculopathy affecting left lower extremity Acute Pleurisy Acute Pulmonary embolus Acute
[2016-09-11 14:05] LABS: BETA 2 GLYCOPROTEIN IGM <4.0 U/mL (())
[2016-09-11 14:12] LABS: BETA 2 GLYCOPROTEIN I IGG <4.0 U/mL (())
[2016-09-11] MEDS ORDERED: traMADol 50 MG TAB PO ONE (15:49)
--- NOTE | 2016-09-11 15:56 | HOSPPROG ---
Hospitalist Progress Note Assessment/Plan: 46-year-old female presents emergency room complaints of left-sided chest pain. Chart reviewed extensively. Discussed with the correctional case records supervisor. Reviewed patient' s care with the nursing staff. Discussed with palliative care. #Pulmonary emboli diagnosed 3 days after starting xaralto-on therapeutic lovenox with coumadin Continue to bridge with Lovenox until Coumadin therapeutic Check INR in the a.m. Follow up with Hematology in the outpatient setting Appreciate Hematology consult Patient will attend the Coumadin Clinic is it is closer to her home # history of SLE with history of transverse myelitis Stable at this time No signs of lupus flare-up at this time # Neurogenic bowel and bladder Continue aggressive bowel protocol Patient may require rehabilitation secondary to acute process Continue self cathing # Pleuritic pain-left shoulder/chest Toradol today NSAIDs per Hematology Avoid narcotics secondary to neurogenic bowel Limit NSAIDs secondary to increased risk for bleeding Patient educated and aware of complications # Anxiety Patient has contracted for safety with me however with staff has been presenting suicidal ideation Reviewed with the rn social work Appreciate psychiatry evaluation Please see note No further intervention warranted at this time # HTN- Likely acute in the setting of severe anxiety Will continue to monitor # palliative care consult Appreciate palliative care meeting with the patient support provided # disposition Reviewed plan of care at length with patient Anxious about going home Recommended rehabilitation in the outpatient setting Consider PowerBack Bowel regimen today Case management to arrange disposition plan Will likely discharge 09/12/2016 Subjective: Tearful today. Does not want to continue living in this current condition. Complains of left-sided pain. Objective: Vital Signs Temp Pulse Resp BP Pulse Ox 36.6 C 91 18 141/88 H 96 09/11/16 08:00 09/11/16 08:00 09/11/16 08:00 09/11/16 08:00 09/11/16 08:00 Laboratory Results 09/10/16 05:17 09/10/16 05:17 09/10/16 09/11/16 09/12/16 05:59 05:59 05:59 Intake Total 1525 Output Total 900 Balance 625 PT 15.7 SEC (12.0-15.0) H 09/10/16 05:17 INR 1.25 (0.83-1.16) H 09/10/16 05:17 - Physical Exam Constitutional: appears nourished, uncomfortable, No no apparent distress Eyes: PERRL, anicteric sclera, EOMI Ears, Nose, Mouth, Throat: moist mucous membranes, hearing normal, ears appear normal Cardiovascular: regular rate and rhythym, No JVD, No edema Respiratory: no respiratory distress, no rales or rhonchi, reduced air movement Gastrointestinal: normoactive bowel sounds, No tenderness, No ascites Skin: warm, normal color, No erythema Musculoskeletal: normal joint ROM, no joint effusions, generalized weakness Neurologic: AAOx3 Psychiatric: anxious, depressed, poor insight, poor judgement, No suicidal ideation ICD10 Worksheet Patient Problems: Problems Problem Status Diagnosed Lumbar back pain with radiculopathy affecting left lower extremity Acute Pleurisy Acute Pulmonary embolus Acute
[2016-09-11] MEDS: LACTULOSE 20 GM/30 ML UDCUP PO PRN (16:10)
[2016-09-11] MEDS: SENNOSIDES 1 TAB PO PRN (16:10)
[2016-09-11] MEDS: BISACODYL 10 MG SUPP PR PRN (19:23)
--- NOTE | 2016-09-11 20:22 | PDPCPN ---
Palliative Care Progress Note Assessment/Plan: Referring provider: Mer Hyatt Reason for consult: Complex medical decision making Symptom control HPI: Wilma Varghese is a 46 yo female with PMH SLE, neurogenic bladder and bowels, transverse myelitis, admitted to the hospital SOB. Found to have PE. Started on anticoagulation as outpt for LE DVT. Hematology consulted. Started on coumadin on room air, having pain on the side of PE. Palliative care consulted for complex medical medical management. Wilma states she feels her pain is worse today, left side sharp and stabbing. Toradol helped the most for her pain but unable to continue to take this. On scheduled ibuprofen now with not as much relief. She is worried about her pain and doing her bowel regimen tonight. Discussed trying tramadol. Morphine did not help oxy helps a little but makes her very dizzy. She is hoping to get increased support at home as it is very difficult for her to manage her medical problems. She is frustrated with medical complications and often feels her quality of life is not very good due to these medical problems. We discussed she does not currently qualify for hospice care with no terminal diagnoses. Palliative care can help with symptom management but she feels she needs more support and not just medical management then palliative care can offer. She has a MDPOA who she feels knows her wishes well and is a great support to her. Assessment: Physical: - Pain: from PE on side - on scheduled NSAIDs - lidocaine patch - tramadol x1 tonight - deep breathing, distraction techniques - constipation; due to neurogenic bladder - continue bowel regimen Emotional/psychological: anxiety: - at home on xanax - valium PRN - psych involved Advanced Care Planning: Is patient decisional?: yes Code Status: DNR POA: Aliyah bashir is MDPOA. Plan: Discharge home tomorrow with [facility]. Subjective: the pain is worse and feels like i'm being stabbed in the side Objective: Social History: Estranged from family. lives alone. Medication list reviewed ROS: General: fatigue, weakness ENT: negative Resp: negative GI: constipation : neurogenic bladder MS: side pain Skin: negative Neuro: negative Psych: negative Functional assessment: PPS: 80% Functional status: independent ADLs, IADLs Vital Signs Temp Pulse Resp BP Pulse Ox 36.6 C 109 H 18 142/98 H 96 09/11/16 08:00 09/11/16 16:00 09/11/16 16:00 09/11/16 16:00 09/11/16 16:00 Laboratory Results 09/10/16 05:17 09/10/16 05:17 09/10/16 09/11/16 09/12/16 05:59 05:59 05:59 Intake Total 1525 Output Total 900 Balance 625 PT 15.7 SEC (12.0-15.0) H 09/10/16 05:17 INR 1.25 (0.83-1.16) H 09/10/16 05:17 Physical Exam - Physical Exam General Appearance: alert, no apparent distress Respiratory: No respiratory distress, No accessory muscle use Skin: normal color, warm/dry Extremities: No pedal edema Neuro/Psych: alert, oriented x 3 ICD10 Worksheet Patient Problems: Problems Problem Status Diagnosed Lumbar back pain with radiculopathy affecting left lower extremity Acute Pleurisy Acute Pulmonary embolus Acute
[2016-09-11] MEDS ORDERED: TOLTERODINE TARTRATE 4 MG PO SCH (21:00)
[2016-09-11] MEDS: GABAPENTIN 300 MG CAP PO SCH (22:10)
[2016-09-11] MEDS: PATCH REMOVAL 1 EA PATCH TD SCH (22:13)
[2016-09-12] MEDS: DIAZEPAM 10 MG PO PRN (00:56)
[2016-09-12 05:38] LABS: INR 2.2 (0.83-1.16); PROTIME(PATIENT) 24.6 SEC (12.0-15.0)
[2016-09-12 08:01] LABS: INTERPRETATION See Comments (())
[2016-09-12 08:25] VITALS: RESP 16
[2016-09-12] MEDS: CHOLECALCIFEROL VIT D3 1,000 UNITS TAB PO SCH (08:58)
[2016-09-12] MEDS: DOCUSATE SODIUM 100 MG CAP PO SCH ×2 (08:58→14:53)
[2016-09-12 09:00] LABS: STACLOT APTT 68 (()); STACLOT DELTA 19 sec (0 - 7)
[2016-09-12] MEDS: SENNOSIDES 1 TAB PO SCH (09:00)
[2016-09-12] MEDS: ENOXAPARIN 80 MG/0.8 ML SYR SC SCH (09:00)
[2016-09-12] MEDS: MULTIVITAMINS 1 EACH TAB PO SCH (09:01)
[2016-09-12] MEDS: FAMVIR 500 MG PO SCH (09:01)
[2016-09-12] MEDS: IMURAN PO SCH (09:02)
[2016-09-12] MEDS: LIDOCAINE 5% 1 EA PATCH TD SCH (09:05)
--- NOTE | 2016-09-12 11:57 | SOAPPROG ---
CHRYSTAL Progress Note Assessment/Plan: Assessment: 1) Pulmonary emboli/DVT-INR therapeutic. No clear evidence of a lupus anticoagulant, but some labs still pending. 2) SLE with history of tranverse myelitis 3) Neurogenic bowel and bladder 4) Pleuritic pain-left shoulder/chest-taking NSAIDS 5) Anxiety Plan: 1) Recommend anticoag management thru coag clinic. Location is very convenient for her. She should have labs tomorrow. Unclear if INR has plateaued or will continue rising 2)We discussed concurrent use of NSAIDs with coumadin. While not ideal, she can' t imagine not being able to take NSAIDs. We discussed trying to use sparingly and start regular nexium. 3) Follow up with me in about 3-4 weeks. I'll have my office call her to schedule. 4) Duration of anticoagulation still unclear. We can determine that as an outpatient. Will be checking a few more times for the lupus anticoagulant, as this could impact duration of anticoag. 5) I think she should see her PCP in the near future. Subjective: still with pleuritic pain, no leg swelling Objective: Vital Signs Temp Pulse Resp BP Pulse Ox 36.6 C 102 H 16 143/98 H 96 09/12/16 08:00 09/12/16 08:00 09/12/16 08:00 09/12/16 08:00 09/12/16 08:00 Laboratory Results 09/10/16 05:17 09/10/16 05:17 PT 24.6 SEC (12.0-15.0) H D 09/12/16 05:13 INR 2.20 (0.83-1.16) H 09/12/16 05:13 Physical Exam - Physical Exam General Appearance: alert, no apparent distress Respiratory: lungs clear Abdomen: soft Extremities: No pedal edema Neuro/Psych: disoriented to time (appears more relaxed today) ICD10 Worksheet Patient Problems: Problems Problem Status Diagnosed Lumbar back pain with radiculopathy affecting left lower extremity Acute Pleurisy Acute Pulmonary embolus Acute
[2016-09-12] MEDS: IBUPROFEN 600 MG TAB PO SCH (12:34)
[2016-09-12] MEDS: LACTULOSE 20 GM/30 ML UDCUP PO SCH (12:35)
--- NOTE | 2016-09-12 12:42 | BCON ---
[f rep st] BEHAVIORAL HEALTH CONSULTATION PSYCHIATRIC CONSULTATION. DATE OF CONSULTATION: 09/11/2016 REASON FOR PSYCHIATRIC HOSPITALIZATION: The patient was making suicidal statements to staff. HISTORY OF PRESENT ILLNESS: The patient is a 46-year-old, single female, originally from [place], with a long history of lupus and lupus- induced transverse myelitis leading to neurogenic bladder and problems with her bowels. The patient was recently seen in the emergency room on September 03 and diagnosed with a left popliteal DVT. The patient presented to the ER again on 09/09/2016, and complained of left-sided sharp pleuritic pain. The patient reports that this pain was worse when she breathed in. She was concerned that the clot went from her leg to her lung. The patient has a history of systemic lupus, neurogenic bladder, spinal cord injury, fibroids, kidney stones, and is currently on Xarelto. The patient self caths and has costochondritis. The patient reports that her quality of life has been poor due to her multiple medical problems. She has had multiple medical hospitalizations and states that she lives alone, and it is difficult for her to make friends. She does have an ex-boyfriend who is somewhat supportive; however, she states he has his own life. The patient reports she has been on antidepressants before, but they only made her worse. They caused her to have insomnia and did not help her mood. She states she is depressed because of her situation and because of her pain and medical problems. She states she made suicidal statements because she feels that sometimes she does not want to live with chronic pain and the chronic medical problems she has. However, she has no current suicide plan or intent. She denies a history of suicide attempts in the past and has never had a psychiatric hospitalization. She is cooperative and open during the psychiatric evaluation. She denies any vegetative symptoms of depression and does admit to anxiety. She has currently been prescribed Valium while in the hospital and Xanax at home. The patient states that she is having problems with controlling her pain and is taking NSAIDs currently, although this is risky. PSYCHIATRIC HISTORY: Patient reports outpatient treatment in the past with antidepressants. No history of suicide attempts or psychiatric hospitalizations. States when she was put on antidepressants, it caused insomnia and gave her side effects and made her feel worse. She is not interested in taking any psychiatric medications at this time other than benzodiazepines to control her anxiety. MEDICAL HISTORY: Patient has a history of systemic lupus with transverse myelitis, recent DVT, degenerative disk disease, recent PE, neurogenic bladder, needs significant bowel protocol, chronic pain, recent increased blood pressure. SUBSTANCE ABUSE: The patient denies any history of alcohol or drug abuse or addiction. SOCIAL HX-The pt is from [place] but lived in [facility]. She was in real estate in the past and moved to [place] because she could not afford to buy an apartment there. She does not like living in [place] because she does not like the people and the food and feels there is no culture here compared to [facility]. She is socially isolated and states her only friend is her ex-boyfriend. She feels the people around here are "crazy and fake friends." She is on disability and lives alone. She is estranged from her family and has no children. MENTAL STATUS: Patient is alert and oriented x4. Mood is anxious. Affect is appropriate. The patient's thoughts are logical and coherent. Speech normal rate and rhythm. No vegetative symptoms of depression. No suicidal or homicidal ideation. No auditory or visual hallucinations. No symptoms of psychosis or jaleesa. Memory is intact. No symptoms of cognitive deficits. Insight and judgment are good. The patient understands about her medical problems and is decisional at this time. IMPRESSION: Depression and anxiety related to medical problems. PLAN: Patient is currently not a suicide risk. She does report anxiety and depression related to her medical problems and increased pain. She is not interested in antidepressants, and I do not believe these would help. The patient is psychiatrically stable for discharge. She should be referred to a therapist upon discharge if she is interested. The patient will be getting [facility] upon discharge and has a PCP and also will be following with Dr. Winters of Hematology. /[id number]/MODL MTDD
--- NOTE | 2016-09-12 12:56 | US ---
Left Lower Extremity Deep Venous Duplex Ultrasound Indication: Follow up deep venous thrombosis. Technique: The left lower extremity deep venous system and veins of the proximal calf were interrogat ed with grayscale, color, and spectral Doppler imaging. Comparison: September 03, 2016. Findings: The overall length of noncompressible deep venous thrombosis in the left popliteal vein has not significantly changed since 9 days prior. No propagation centrally into the femoral vein or vivian pherally into the peroneal or posterior tibial veins. The common femoral, femoral, greater saphenous, posterior tibial, and peroneal veins are all normally compressible and have appropriate flow. Impression: Deep venous thrombosis remains limited to the popliteal vein. No propagation into the thi gh.
--- NOTE | 2016-09-12 14:18 | PDIAF ---
- Diagnosis Diagnosis: PE Code Status: Do Not Resuscitate - Medication Management Discharge Medications: Medications to Continue on Transfer Bisacodyl [Dulcolax] 10 - 60 mg RC HS PRN 08/10/16 [Last Taken Unknown] Cholecalciferol Vit D3 [Vitamin D3 (*)] 1,000 units PO DAILY 08/10/16 [Last Taken 08/10/16] Diazepam [Valium 10 MG (*)] 10 mg PO Q8H PRN 08/10/16 [Last Taken 07/27/16] Docusate Sodium [Colace 100 MG (*)] 100 mg PO TIDMEAL 08/10/16 [Last Taken 09/08] Famciclovir [Famvir] 500 mg PO BID 08/10/16 [Last Taken 09/08/16 21:00] Gabapentin [Neurontin 300 MG (*)] 300 - 900 mg PO HS 08/10/16 [Last Taken 300MG] Herbals/Supplements -Info Only 1 ea PO DAILY 08/10/16 [Last Taken 08/10/16] Lactulose [Cephulac 20 gm/30 ml oral soln (*)] 20 gm PO DAILY 08/10/16 [Last Taken 08/09/16] Multivitamins [Multivitamin (*)] 1 each PO DAILY 08/10/16 [Last Taken 09/08/16] Sennosides [Senokot] 8.6 mg PO DAILY18 08/10/16 [Last Taken 09/08/16] Sennosides [Senokot] 25.8 mg PO DAILY 08/10/16 [Last Taken 09/08/16] Tolterodine Tartrate [Detrol LA] 4 mg PO HS 08/10/16 [Last Taken 09/08/16] azaTHIOprine [Imuran 50 mg (*)] 25 mg PO DAILY 08/10/16 [Last Taken 09/08/16] Norethindrone [Gissel-Be] 1 tab PO DAILY 09/09/16 [Last Taken Unknown] Warfarin Sodium [Coumadin 5MG (*)] 2 mg PO DAILY AT 4PM #0 tab 09/12/16 [Last Taken Unknown] Discharge Medications: Refer to the Discharge Home Medication list for PRN reason. - Orders Services needed: Home Alf Care Face to Face: I certify that this patient was under my care and that I had the required [id number] encounter meeting the encounter requirements on the discharge day. My findings support the fact that the patient is homebound as defined in CMS Chapter 7 Medicare Benefits Manual 30.1.1, The condition of the patient is such that there exists a normal inability to leave home and consequently, leaving home would require a considerable and taxing effort. Diet Recommendation: no restrictions on diet - Follow Up Care Current Providers and Referrals: Isela Kelly COKE DRAWER [Primary Care Provider] - As per Instructions
--- NOTE | 2016-09-12 14:25 | PDDCSUM ---
Discharge Summary Discharge Summary: HPI AND HOSPITAL COURSE: 46-year-old female with recent DVT admitted for symptomatic P.E. She has a hx of Lupus and Lupus induced transverse myelitis. No clear evidence of Lupus Anticoagulant. She was started on Lovenox and Coumadin. She has a therapeutic INR on discharge and will be discharged on 2mg of warfarin daily. She will f/u at the coumadin clinic tomorrow for INR check. She will also f/u with her PCP in one week. She will f/u with Dr. Winters (who provided consultation) in 2-4 weeks. She is not requiring supplemental O2. She is stable from a resp standpoint. She continues to have some edema to her left leg but much better. Pain is well controlled with NSAIDS. She says she will take diclofenac which she has at home. She does not want narcotics. As for duration of AC, this will be determined by her [employer] Efficient Site [employer]. DDX: #Pulmonary emboli diagnosed 3 days after starting xaralto-on therapeutic lovenox with coumadin # history of SLE with history of transverse myelitis Stable at this time No signs of lupus flare-up at this time # Neurogenic bowel and bladder Continue aggressive bowel protocol Continue self cathing # Pleuritic pain-left shoulder/chest NSAIDs per Hematology Avoid narcotics secondary to neurogenic bowel Limit NSAIDs secondary to increased risk for bleeding Patient educated and aware of complications # Anxiety/Depressin/SI (seen by Psych. No active ideations at this time. OK to discharge) # HTN #DNR DC MEDS: SEE MED REC. DC EXAM: NAD AAOX3 RRR CTAB S/NT/ND TOTAL CARE TIME SPENT ON DISCHARGE IS 45 MINUTES
[2016-09-12] MEDS ORDERED: WARFARIN SODIUM 2 MG TAB PO SCH (16:00)
[2016-09-12] MEDS ORDERED: WARFARIN SODIUM 5 MG TAB PO SCH (16:00)
[2016-09-12 16:11] VITALS: BP 146/101; PULSE 92; TEMP 98.5; O2SAT 95
[2016-09-12 17:57] LABS: DILUTE RUSSELLS VIPER VENOM 1.4 ratio (0.0 - 1.1); INR 1.2 (()); INTERPRETATION See Comments (()); PTT 35 sec (26 - 36)
== END 2016-09-12 17:55 | disposition home health service (06) | DRG 176 ==
LOC: F3E 09:27
PROVIDERS: ADMIT Student in an Organized Health Care Education/Training Program; ATTEND Student in an Organized Health Care Education/Training Program
DX: I26.99 Other pulmonary embolism without acute cor pulmonale (principal); M32.9 Systemic lupus erythematosus, unspecified; K59.2 Neurogenic bowel, not elsewhere classified; N31.9 Neuromuscular dysfunction of bladder, unspecified; G37.3 Acute transverse myelitis in demyelinating disease of central nervous system; G82.20 Paraplegia, unspecified; E87.6 Hypokalemia; F41.8 Other specified anxiety disorders; I10 Essential (primary) hypertension; Z87.442 Personal history of urinary calculi; Z86.718 Personal history of other venous thrombosis and embolism
CPT/HCPCS: 81332-90; 81479-90; 85300-90; 85303-90; 85306-90; 85597-90; 85635-90; 85670-90; 86147-90; 86225-90; 97162-GP; 97166-GO; 97535-GO; G8978-GP-CI; G8979-GP-CI; G8987-GO-CI; G8988-GO-CI; J1650; J1885; J2405; Q9967

== ENCOUNTER → 2016-10-09 | Outpatient (CLI) | payer OTHER, MEDICAID | LOC: BMCIMAGING 14:23 | PROVIDERS: ATTEND Internal Medicine Rheumatology | DX: I82.432 Acute embolism and thrombosis of left popliteal vein (principal); M79.662 Pain in left lower leg ==

== ENCOUNTER → 2016-10-23 | Outpatient (CLI) | payer OTHER, MEDICAID | LOC: FIMAGING 12:56 | PROVIDERS: ATTEND Obstetrics & Gynecology | DX: D25.1 Intramural leiomyoma of uterus (principal); D25.0 Submucous leiomyoma of uterus; N91.2 Amenorrhea, unspecified | CPT/HCPCS: 84144-90; 86225-90 ==

== ENCOUNTER → 2016-11-21 | Outpatient (CLI) | payer OTHER, MEDICAID | LOC: FIMAGING 08:44 | DX: Z12.31 Encounter for screening mammogram for malignant neoplasm of breast (principal) | CPT/HCPCS: G0202 ==

== ENCOUNTER → 2017-02-17 | Outpatient (CLI) | payer OTHER, MEDICAID | LOC: BHFA 10:45 | PROVIDERS: ATTEND Internal Medicine Cardiovascular Disease | DX: R00.2 Palpitations (principal) ==

== ENCOUNTER → 2017-05-02 | Outpatient (CLI) | payer OTHER, MEDICAID | LOC: FIMAGING 13:09 | PROVIDERS: ATTEND Physician Assistant | DX: Z13.820 Encounter for screening for osteoporosis (principal); M85.89 Other specified disorders of bone density and structure, multiple sites; Z87.39 Personal history of other diseases of the musculoskeletal system and connective tissue ==

== ENCOUNTER → 2017-07-23 | Outpatient (CLI) | payer OTHER, MEDICAID | LOC: FIMAGING 14:17 | PROVIDERS: ATTEND Obstetrics & Gynecology Gynecology | DX: D25.0 Submucous leiomyoma of uterus (principal) ==

== ENCOUNTER → 2018-01-09 | Outpatient (CLI) | payer OTHER, MEDICAID | LOC: FIMAGING 11:36 | PROVIDERS: ATTEND Obstetrics & Gynecology Gynecology | DX: D25.2 Subserosal leiomyoma of uterus (principal); N83.201 Unspecified ovarian cyst, right side; N83.202 Unspecified ovarian cyst, left side ==

== ENCOUNTER → 2018-01-14 | Outpatient (CLI) | payer OTHER, MEDICAID | LOC: FIMAGING 12:31 | PROVIDERS: ATTEND Obstetrics & Gynecology Gynecology | DX: Z12.31 Encounter for screening mammogram for malignant neoplasm of breast (principal); Z80.3 Family history of malignant neoplasm of breast ==

== ENCOUNTER → 2018-08-21 | Outpatient (CLI) | payer OTHER, MEDICAID | LOC: FIMAGING 08:09 | PROVIDERS: ATTEND Obstetrics & Gynecology Gynecology | DX: N93.9 Abnormal uterine and vaginal bleeding, unspecified (principal); N63.10 Unspecified lump in the right breast, unspecified quadrant; D25.1 Intramural leiomyoma of uterus; N83.201 Unspecified ovarian cyst, right side; N83.202 Unspecified ovarian cyst, left side ==

== ENCOUNTER → 2019-01-26 | Outpatient (CLI) | payer OTHER, MEDICAID | LOC: FIMAGING 11:27 ==